=== PATIENT | female | born 1985 | race Caucasian/White ===

== ENCOUNTER 2023-01-16 21:42 | Emergency (ER) | payer MEDICAID ==
[~2023-01-16] VITALS: Ht 162.6 cm; Wt 86.2 kg
[2023-01-16 21:51] VITALS: BP_SYST 138; PULSE 104; RESP 18; TEMP 97.2; O2SAT 96
[2023-01-16] MEDS ORDERED: KETOROLAC TROMETHAMINE 60 MG/2 ML VIAL IM ONE (22:30)
[2023-01-16] MEDS ORDERED: AUG875 PO (22:56)
[2023-01-16] MEDS ORDERED: KETO10TA2 PO (22:59)
[2023-01-16 23:10] LABS: INFLUENZA TYPE A negative (NEGATIVE); INFLUENZA TYPE B NEGATIVE (NEGATIVE)
[2023-01-16 23:26] VITALS: TEMP 98
== END 2023-01-16 23:26 | disposition home or self-care (01) ==
LOC: SED 21:42
DX: J02.9 Acute pharyngitis, unspecified (principal); R51.9 Headache, unspecified; R05.9 Cough, unspecified; Z79.899 Other long term (current) drug therapy
CPT/HCPCS: 99283; 36415; 96372; 87804 ×2; J1885